=== PATIENT | female | born 1960 | race Caucasian/White ===

== ENCOUNTER 2020-12-09 13:49 | Emergency (ER) | payer MEDICAID ==
[~2020-12-09] VITALS: Ht 157.5 cm; Wt 89.0 kg
[2020-12-09 15:10] LABS: CLARITY URINE CLEAR (CLEAR); COLOR URINE YELLOW (YELLOW); KETONES URINE NEGATIVE (NEGATIVE); LEUKOCYTE ESTERASE URINE NEGATIVE (NEGATIVE); NITRITE URINE NEGATIVE (NEGATIVE); OCCULT BLOOD URINE NEGATIVE (NEGATIVE); PH URINE 6.5 (4.5-8.0); PROTEIN URINE NEGATIVE (NEGATIVE); SPECIFIC GRAVITY URINE 1.024 (1.005-1.030); UROBILINOGEN URINE 0.2 E.U./dL (0.2-1.0)
[2020-12-09] MEDS ORDERED: MUPI15CR11 TP (15:42)
[2020-12-09] MEDS ORDERED: INSU200I4 SQ (15:42)
[2020-12-09] MEDS ORDERED: INSU100V34 SQ (15:42)
[2020-12-09 16:07] VITALS: BP 151/51
== END 2020-12-09 16:11 | disposition home or self-care (01) ==
LOC: ER 13:49
DX: S91.311A Laceration without foreign body, right foot, initial encounter (principal); M77.31 Calcaneal spur, right foot; E11.9 Type 2 diabetes mellitus without complications; I10 Essential (primary) hypertension; Z76.0 Encounter for issue of repeat prescription; Z98.1 Arthrodesis status; Z88.0 Allergy status to penicillin; Z79.4 Long term (current) use of insulin; X58.XXXA Exposure to other specified factors, initial encounter; Y93.89 Activity, other specified; Y92.018 Other place in single-family (private) house as the place of occurrence of the external cause
CPT/HCPCS: 73650; 81003; 99284

== ENCOUNTER 2020-12-29 13:14 | Emergency (ER) | payer MEDICAID, OTHER ==
[~2020-12-29] VITALS: Ht 160 cm; Wt 86.0 kg
[~2020-12-29 13:14] MED LIST: ATEN50TA PO; CLON0.5T PO; INSU100V34 SQ; INSU200I4 SQ; LEVO500T89 PO; LORA5SOL62 PO; LOVA10TA54 PO; MUPI15CR11 TP; TRAZ150T78 MT
[2020-12-29 14:21] VITALS: BP 125/53
[2020-12-29] MEDS ORDERED: ALBU6.7H9 INH (14:26)
[2020-12-29] MEDS ORDERED: INSU100V34 SQ (14:26)
[2020-12-29] MEDS ORDERED: INSU200I4 SQ (14:26)
[2020-12-29] MEDS ORDERED: GABA-532 MT (14:26)
== END 2020-12-29 14:58 | disposition home or self-care (01) ==
LOC: ER 13:14
DX: R52 Pain, unspecified (principal); J45.909 Unspecified asthma, uncomplicated; E11.9 Type 2 diabetes mellitus without complications; I10 Essential (primary) hypertension; Z79.899 Other long term (current) drug therapy; Z88.0 Allergy status to penicillin
CPT/HCPCS: 82962; 99281; 99282

== ENCOUNTER 2021-01-04 15:15 | Emergency (ER) | payer MEDICAID ==
[~2021-01-04] VITALS: Ht 152.4 cm; Wt 80.0 kg
[~2021-01-04 15:15] MED LIST changes: +ALBU6.7H9 INH; +GABA-532 MT
[2021-01-04 18:36] LABS: HEMATOCRIT. 29.1 % (36.0-48.0); HEMOGLOBIN. 9.3 g/dL (12.0-16.0); MEAN CORPUSCULAR HEMOGLOBIN 23.1 pg (28.0-32.0); MEAN CORPUSCULAR VOLUME 72.1 fL (81.0-99.0); PLATELET 292 x1000/uL (130-400); RED BLOOD CELL COUNT 4.04 mill/uL (4.2-5.4); RED CELL DISTRIBUTION WIDTH 18.4 % (11.6-14.6)
[2021-01-04 18:43] LABS: CHLORIDE 109 mEq/L (98-107)
[2021-01-04 19:06] LABS: PLATELET ESTIMATE NORMAL
[2021-01-04 19:23] LABS: CLARITY URINE CLEAR (CLEAR); COLOR URINE YELLOW (YELLOW); KETONES URINE NEGATIVE (NEGATIVE); LEUKOCYTE ESTERASE URINE TRACE (NEGATIVE); NITRITE URINE NEGATIVE (NEGATIVE); OCCULT BLOOD URINE NEGATIVE (NEGATIVE); PH URINE 5.5 (4.5-8.0); PROTEIN URINE 2+ (NEGATIVE); SPECIFIC GRAVITY URINE 1.026 (1.005-1.030); UROBILINOGEN URINE 0.2 E.U./dL (0.2-1.0)
[2021-01-04] MEDS ORDERED: NITR-87 MT (20:16)
[2021-01-04 20:25] VITALS: BP 121/61
== END 2021-01-04 20:25 | disposition home or self-care (01) ==
LOC: ER 15:32
DX: E11.65 Type 2 diabetes mellitus with hyperglycemia (principal); F32.9 Major depressive disorder, single episode, unspecified; J45.909 Unspecified asthma, uncomplicated; Z79.4 Long term (current) use of insulin; Z88.0 Allergy status to penicillin
CPT/HCPCS: 36415; 71045; 80053; 81003; 82962; 83880; 84484; 85025; 93005; 99285

== ENCOUNTER 2021-03-12 00:33 | Emergency (ER) | payer MEDICAID ==
[~2021-03-12] VITALS: Ht 160 cm; Wt 100.0 kg
[~2021-03-12 00:33] MED LIST changes: +NITR-87 MT
[2021-03-12] MEDS ORDERED: METHOCARBAMOL 500MG TABLET PO ONE (01:30)
[2021-03-12] MEDS ORDERED: ACETAMINOPHEN 325MG TABLET PO ONE (01:30)
[2021-03-12 01:55] LABS: BASOPHILS % 2.3 % (0.0-2.0); EOSINOPHILS % 6.7 % (0.0-5.0); HEMATOCRIT. 31.5 % (36.0-48.0); HEMOGLOBIN. 9.7 g/dL (12.0-16.0); LYMPHOCYTES % 29.4 % (20.0-50.0); MEAN CORPUSCULAR HEMOGLOBIN 20.8 pg (28.0-32.0); MEAN CORPUSCULAR VOLUME 67.5 fL (81.0-99.0); MEAN PLATELET VOLUME 8.3 fl (7.4-10.4); NEUTROPHILS % 52.6 % (40.0-76.0); PLATELET 264 x1000/uL (130-400); RED BLOOD CELL COUNT 4.66 mill/uL (4.2-5.4); RED CELL DISTRIBUTION WIDTH 26.7 % (11.6-14.6)
[2021-03-12 02:01] LABS: CHLORIDE 106 mEq/L (98-107)
[2021-03-12 04:47] LABS: PLATELET ESTIMATE NORMAL
[2021-03-12] MEDS ORDERED: ACET-2708 MT (05:29)
[2021-03-12] MEDS ORDERED: METH500T6 MT (05:29)
[2021-03-12 05:32] VITALS: BP 158/89
== END 2021-03-12 06:35 | disposition home or self-care (01) ==
LOC: ER 00:33
DX: M25.512 Pain in left shoulder (principal); J45.909 Unspecified asthma, uncomplicated; J44.1 Chronic obstructive pulmonary disease with (acute) exacerbation; E11.9 Type 2 diabetes mellitus without complications; Z88.0 Allergy status to penicillin; Z79.4 Long term (current) use of insulin; Z79.899 Other long term (current) drug therapy
CPT/HCPCS: 36415; 71045; 73030; 80053; 83880; 84484; 85025; 93005; 99285

== ENCOUNTER 2021-05-28 21:06 | Inpatient (IN) | payer MEDICAID ==
[~2021-05-28] VITALS: Ht 160 cm; Wt 88.5 kg
[~2021-05-28 21:06] MED LIST changes: +ACET-2708 MT; +METH-773 MT
[2021-05-29] MEDS ORDERED: SODIUM CHLORIDE 0.9% 1,000 ML IV ONE (05:15)
[2021-05-29 05:22] LABS: CLARITY URINE CLEAR (CLEAR); COLOR URINE YELLOW (YELLOW); KETONES URINE NEGATIVE (NEGATIVE); LEUKOCYTE ESTERASE URINE TRACE (NEGATIVE); NITRITE URINE NEGATIVE (NEGATIVE); OCCULT BLOOD URINE TRACE (NEGATIVE); PH URINE 6.5 (4.5-8.0); PROTEIN URINE TRACE (NEGATIVE); SPECIFIC GRAVITY URINE 1.024 (1.005-1.030); UROBILINOGEN URINE 0.2 E.U./dL (0.2-1.0)
[2021-05-29 05:30] LABS: BASOPHILS % 0.4 % (0.0-2.0); EOSINOPHILS % 0.1 % (0.0-5.0); HEMOGLOBIN. 12.2 g/dL (12.0-16.0); LYMPHOCYTES % 11.8 % (20.0-50.0); MEAN CORPUSCULAR HEMOGLOBIN 21.5 pg (28.0-32.0); MEAN CORPUSCULAR VOLUME 72.2 fL (81.0-99.0); MEAN PLATELET VOLUME 8.5 fl (7.4-10.4); MONOCYTES % 5.8 % (2.0-8.0); NEUTROPHILS % 81.9 % (40.0-76.0); PLATELET 378 x1000/uL (130-400); RED BLOOD CELL COUNT 5.68 mill/uL (4.2-5.4); RED CELL DISTRIBUTION WIDTH 20.9 % (11.6-14.6)
[2021-05-29 05:36] LABS: CHLORIDE 94 mEq/L (98-107)
[2021-05-29 05:36] LABS: BG BASE EXCESS -6.1 mmol/L (-2.0-2.0); BG CARBOXYHEMOGLOBIN 1.9 % (0.5-1.5); BG DEOXYHEMOGLOBIN 9.8 % (0.0-5.0); BG FRACTION INSPIRED OXYGEN 21; BG HCO3 ACT 19.8 mmol/L (22.0-26.0); BG METHEMOGLOBIN 0.2 % (0.0-1.5); BG OXYHEMOGLOBIN 88.1 % (94.0-97.0); BG PCO2 40.4 mmHg (35.0-45.0); BG PH 7.308 (7.350-7.450); BG PO2 63.3 mmHg (75.0-100.0); BG SAMPLE SITE RIGHT RADIAL; BG TOTAL HEMOGLOBIN 12.5 g/dL (12.0-18.0); BG VENT MODE ROOM AIR
[2021-05-29 05:45] LABS: BETA HYDROXYBUTYRATE 0.2 mMol/L (0.0-0.3)
[2021-05-29] MEDS ORDERED: INSULIN REGULAR (DRIP) 100 UNITS in SODIUM CHLORIDE 0.9% 99 ML IV SCH (06:15)
[2021-05-29] MEDS ORDERED: ACETAMINOPHEN 325MG TABLET PO ONE (09:30)
[2021-05-29] MEDS ORDERED: MAGNESIUM/ALUMINUM HYDROXIDE/SIMETHICONE 30ML UDC PO PRN (15:45)
[2021-05-29] MEDS ORDERED: GUAIFENESIN 200MG/10ML SUGAR FREE UDC PO PRN (15:45)
[2021-05-29] MEDS ORDERED: SODIUM CHLORIDE 0.9% 1,000 ML IV SCH (15:45)
[2021-05-29] MEDS ORDERED: DOCUSATE SODIUM 100MG CAPSULE PO PRN (15:45)
[2021-05-29] MEDS ORDERED: DEXTROSE 50% WATER 50ML SYRINGE IV PRN ×2 (15:45)
[2021-05-29] MEDS ORDERED: ACETAMINOPHEN 325MG TABLET PO PRN (15:45)
[2021-05-29] MEDS ORDERED: CLONIDINE 0.1MG TABLET PO PRN (15:45)
[2021-05-29] MEDS: SODIUM CHLORIDE 0.45% 1,000 ML IV SCH (16:00)
[2021-05-29 16:35] LABS: HEMATOCRIT 40.2 % (36.0-48.0); HEMOGLOBIN 12.5 g/dL (12.0-16.0); MEAN CORPUSCULAR HEMOGLOBIN 21.8 pg (28.0-32.0); MEAN CORPUSCULAR VOLUME 69.9 fL (81.0-99.0); PLATELET 400 x1000/uL (130-400); RED BLOOD CELL COUNT 5.75 mill/uL (4.2-5.4); RED CELL DISTRIBUTION WIDTH 20.3 % (11.6-14.6)
[2021-05-29 16:44] LABS: CHLORIDE 104 mEq/L (98-107)
[2021-05-29] MEDS: ENOXAPARIN 40MG/0.4ML SYR SUBCUT SCH (17:00)
[2021-05-29] MEDS: INSULIN LISPRO 100 UNITS/ML SUBCUT SCH ×2 (17:08→21:28)
[2021-05-29] MEDS: BLOOD SUGAR DIAGNOSTIC STRIP TEST SCH ×2 (17:48→21:04)
[2021-05-29] MEDS ORDERED: INSULIN GLARGINE UD 100 UNITS/ML SYR SUBCUT SCH (22:00)
[2021-05-30 01:30] VITALS: BP 151/75
[2021-05-30] MEDS: SODIUM CHLORIDE 0.45% 1,000 ML IV SCH ×3 (01:49→17:25)
[2021-05-30] MEDS: BLOOD SUGAR DIAGNOSTIC STRIP TEST SCH ×4 (05:53→21:20)
[2021-05-30] MEDS: OMEPRAZOLE 20MG CAPSULE EXTENDED RELEASE PO SCH (05:54)
[2021-05-30] MEDS: INSULIN LISPRO 100 UNITS/ML SUBCUT SCH ×4 (06:13→21:47)
[2021-05-30 08:00] VITALS: BP 148/88
[2021-05-30 09:24] LABS: BASOPHILS % 0.7 % (0.0-2.0); EOSINOPHILS % 1.9 % (0.0-5.0); HEMATOCRIT. 38.6 % (36.0-48.0); LYMPHOCYTES % 28.1 % (20.0-50.0); MEAN CORPUSCULAR HEMOGLOBIN 21.4 pg (28.0-32.0); MEAN CORPUSCULAR VOLUME 68.6 fL (81.0-99.0); MEAN PLATELET VOLUME 8.4 fl (7.4-10.4); MONOCYTES % 7.6 % (2.0-8.0); NEUTROPHILS % 61.7 % (40.0-76.0); PLATELET 385 x1000/uL (130-400); RED BLOOD CELL COUNT 5.63 mill/uL (4.2-5.4); RED CELL DISTRIBUTION WIDTH 20.7 % (11.6-14.6)
[2021-05-30 09:29] LABS: CHLORIDE 102 mEq/L (98-107)
[2021-05-30 09:39] LABS: LDL CHOLESTEROL 91 mg/dL (5-100); PHOSPHORUS 2.6 mg/dL (2.5-4.9)
[2021-05-30 09:41] LABS: T4 FREE 0.93 ng/dL (0.76-1.46)
[2021-05-30 09:42] LABS: HDL CHOLESTEROL 37 mg/dL (40-59)
[2021-05-30] MEDS: INSULIN GLARGINE UD 100 UNITS/ML SYR SUBCUT SCH ×2 (11:39→21:48)
[2021-05-30 12:00] VITALS: BP 146/74
[2021-05-30] MEDS: IPRATROPIUM/ALBUTEROL 0.5-3(2.5)MG/3ML NEB HHN SCH ×2 (13:08→16:52)
[2021-05-30 13:47] LABS: PLATELET ESTIMATE NORMAL
[2021-05-30 16:00] VITALS: BP 156/81
[2021-05-30] MEDS ORDERED: MONTELUKAST SODIUM 10MG TABLET PO SCH (17:00)
[2021-05-30] MEDS: ENOXAPARIN 40MG/0.4ML SYR SUBCUT SCH (17:25)
[2021-05-30 20:00] VITALS: BP 114/69
[2021-05-30] MEDS ORDERED: INSULIN LISPRO 100 UNITS/ML SUBCUT NR (21:00)
[2021-05-30] MEDS ORDERED: ATORVASTATIN CALCIUM 20MG TABLET PO SCH (21:00)
[2021-05-30] MEDS ORDERED: ZOLPIDEM TARTRATE 5MG TABLET PO PRN (23:45)
[2021-05-31] VITALS: BP 158/82
[2021-05-31] MEDS: SODIUM CHLORIDE 0.45% 1,000 ML IV SCH (00:04)
[2021-05-31] MEDS: BLOOD SUGAR DIAGNOSTIC STRIP TEST SCH (05:49)
[2021-05-31] MEDS: OMEPRAZOLE 20MG CAPSULE EXTENDED RELEASE PO SCH (05:49)
[2021-05-31 06:24] LABS: BASOPHILS % 0.8 % (0.0-2.0); EOSINOPHILS % 2.3 % (0.0-5.0); HEMATOCRIT. 39.1 % (36.0-48.0); HEMOGLOBIN. 12.4 g/dL (12.0-16.0); LYMPHOCYTES % 33.5 % (20.0-50.0); MEAN CORPUSCULAR HEMOGLOBIN 21.7 pg (28.0-32.0); MEAN PLATELET VOLUME 8.7 fl (7.4-10.4); NEUTROPHILS % 54.4 % (40.0-76.0); PLATELET 356 x1000/uL (130-400); RED BLOOD CELL COUNT 5.74 mill/uL (4.2-5.4); RED CELL DISTRIBUTION WIDTH 20.3 % (11.6-14.6)
[2021-05-31] MEDS: INSULIN LISPRO 100 UNITS/ML SUBCUT SCH (06:33)
[2021-05-31] MEDS ORDERED: LANTUSUD SUBCUT (07:31)
[2021-05-31 07:47] LABS: CHLORIDE 104 mEq/L (98-107)
[2021-05-31 07:57] LABS: PHOSPHORUS 3.4 mg/dL (2.5-4.9)
[2021-05-31 08:09] VITALS: BP 152/86
== END 2021-05-31 08:30 | disposition home or self-care (01) | DRG 420 ==
LOC: ER 21:06 → MICUSO 05-29 07:34 → 7EST 05-30 00:32
PROVIDERS: ADMIT Internal Medicine; ATTEND Internal Medicine
DX: E11.01 Type 2 diabetes mellitus with hyperosmolarity with coma (principal); E46 Unspecified protein-calorie malnutrition; D72.829 Elevated white blood cell count, unspecified; E78.5 Hyperlipidemia, unspecified; F31.9 Bipolar disorder, unspecified; E11.65 Type 2 diabetes mellitus with hyperglycemia; G43.909 Migraine, unspecified, not intractable, without status migrainosus; G89.29 Other chronic pain; M54.9 Dorsalgia, unspecified; I10 Essential (primary) hypertension; J44.9 Chronic obstructive pulmonary disease, unspecified; Z20.822 Contact with and (suspected) exposure to COVID-19; Z79.4 Long term (current) use of insulin; Z82.49 Family history of ischemic heart disease and other diseases of the circulatory system; Z68.34 Body mass index [BMI] 34.0-34.9, adult; Z88.0 Allergy status to penicillin; Z79.899 Other long term (current) drug therapy; Z79.2 Long term (current) use of antibiotics
CPT/HCPCS: 36415; 36600; 71045; 80048; 80053; 80061; 81003; 82010; 82375; 82805; 82962; 83036; 83735; 83930; 83935; 84100; 84439; 84443; 84484; 85025; 85027; 87426; 93005; 99291; J1650; J1815; J7030; J7040; J7050

== ENCOUNTER 2023-11-22 11:22 | Emergency (ER) | payer MEDICAID ==
[~2023-11-22] VITALS: Ht 160 cm; Wt 81.6 kg
[~2023-11-22 11:22] MED LIST changes: +ALBU6.7H3 INH; -ALBU6.7H9 INH; -CLON0.5T PO; +CLON0.5T2 PO; +GLIP10TA10 MT; +LANTUSUD SUBCUT; -LEVO500T89 PO; -NITR-87 MT
[2023-11-22 11:31] VITALS: TEMP 98.3; O2SAT 94
[2023-11-22] MEDS: ACETAMINOPHEN 325MG TABLET PO ONE (11:45)
[2023-11-22] MEDS: LIDOCAINE 5% PATCH TOP SCH (11:45)
[2023-11-22] MEDS: KETOROLAC 15MG/ML VIAL IM ONE (11:45)
[2023-11-22] MEDS ORDERED: NAPR-1176 MT (13:42)
[2023-11-22] MEDS ORDERED: LIDO700A15 TP (13:42)
[2023-11-22 13:57] VITALS: BP 104/70; PULSE 78; RESP 20
== END 2023-11-22 13:58 | disposition home or self-care (01) ==
LOC: ER 11:22
DX: M54.12 Radiculopathy, cervical region (principal); I10 Essential (primary) hypertension; E78.00 Pure hypercholesterolemia, unspecified; E11.9 Type 2 diabetes mellitus without complications; Z88.0 Allergy status to penicillin; Z79.899 Other long term (current) drug therapy
CPT/HCPCS: 99283; 96372; J1885

== ENCOUNTER 2024-08-30 03:17 | Emergency (ER) | payer MEDICAID ==
[~2024-08-30] VITALS: Ht 160 cm; Wt 91.0 kg
[~2024-08-30 03:17] MED LIST changes: +ALBU18HF2 IH; +GABA-1180 MT; -GABA-532 MT; -GLIP10TA10 MT; +GLIP10TA17 MT; +GUAI200T5 PO; +LIDO700A15 TP; +NAPR-1176 MT; +P20 MT
[2024-08-30 03:27] VITALS: O2SAT 100
[2024-08-30 04:24] LABS: CLARITY URINE CLEAR (CLEAR); COLOR URINE YELLOW (YELLOW); GLUCOSE URINE 3+ (NEGATIVE); KETONES URINE NEGATIVE (NEGATIVE); LEUKOCYTE ESTERASE URINE NEGATIVE (NEGATIVE); NITRITE URINE NEGATIVE (NEGATIVE); OCCULT BLOOD URINE TRACE (NEGATIVE); PROTEIN URINE 2+ (NEGATIVE); SPECIFIC GRAVITY URINE 1.025 (1.005-1.030); UROBILINOGEN URINE 0.2 E.U./dL (0.2-1.0)
[2024-08-30 04:26] LABS: BASOPHILS % 0.6 % (0.0-2.0); EOSINOPHILS % 0.1 % (0.0-5.0); HEMOGLOBIN. 11.8 g/dL (12.0-16.0); LYMPHOCYTES % 13.4 % (20.0-50.0); MEAN CORPUSCULAR HEMOGLOBIN 21.4 pg (28.0-32.0); MEAN CORPUSCULAR HGB CONC 31.1 g/dL (31.0-37.0); MEAN CORPUSCULAR VOLUME 68.8 fL (81.0-99.0); MEAN PLATELET VOLUME 7.4 fl (7.4-10.4); MONOCYTES % 1.5 % (2.0-8.0); NEUTROPHILS % 84.4 % (40.0-76.0); PLATELET 362 x1000/uL (130-400); RED BLOOD CELL COUNT 5.53 mill/uL (4.2-5.4); RED CELL DISTRIBUTION WIDTH 18.8 % (11.6-14.6); WHITE BLOOD COUNT 7.6 x1000/uL (4.5-11.0)
[2024-08-30 04:27] LABS: POTASSIUM 4.8 mEq/L (3.5-5.1)
[2024-08-30 04:28] LABS: CALCIUM 9.5 mg/dL (8.7-10.4)
[2024-08-30 04:33] LABS: CREATININE 1.1 mg/dL (0.6-1.0)
[2024-08-30 04:36] LABS: SQUAMOUS EPITHELIAL CELL URINE FEW /lpf (RARE/1+)
[2024-08-30 04:37] LABS: RBC URINE 0-2 /hpf (0-2); WBC URINE 0-2 /hpf (0-2)
[2024-08-30 04:38] LABS: BACTERIA URINE NONE SEEN
[2024-08-30] MEDS: SODIUM CHLORIDE 0.9% 1,000 ML IV ONE ×2 (04:48)
[2024-08-30 04:53] LABS: DIFFERENTIAL COMMENT 1
[2024-08-30 04:57] LABS: ADD RBC MORPHOLOGY YES
[2024-08-30] MEDS: INSULIN REGULAR (HUMULIN R) 1000UNITS/10ML VIAL IV ONE (05:47)
[2024-08-30 06:17] VITALS: TEMP 36.7
[2024-08-30 07:24] LABS: BETA HYDROXYBUTYRATE 0.1 mMol/L (0.0-0.3)
[2024-08-30 09:29] VITALS: BP 139/69; PULSE 72; RESP 22; O2SAT 96
[2024-08-30 12:54] LABS: ANISOCYTOSIS 1+; MICROCYTOSIS 2+; PLATELET ESTIMATE NORMAL
== END 2024-08-30 09:30 | disposition home or self-care (01) ==
LOC: ER 03:17
DX: E11.65 Type 2 diabetes mellitus with hyperglycemia (principal); I10 Essential (primary) hypertension; J45.909 Unspecified asthma, uncomplicated; Z88.0 Allergy status to penicillin; Z79.899 Other long term (current) drug therapy; Z79.4 Long term (current) use of insulin
CPT/HCPCS: 80048; 81003; 82010; 82962; 85025; 36415; 71045; 93005; 96361; 96374; 99285; J1815; J7030; Z7610; 99291

== ENCOUNTER 2024-09-12 13:03 | Emergency (ER) | payer MEDICAID ==
[~2024-09-12] VITALS: Ht 160 cm; Wt 83.0 kg
[2024-09-12 13:17] VITALS: O2SAT 93
[2024-09-12] MEDS: PREDNISONE 20MG TABLET PO ONE (13:54)
[2024-09-12 14:01] VITALS: PULSE 83; RESP 20
[2024-09-12] MEDS: IPRATROPIUM/ALBUTEROL 0.5-3(2.5)MG/3ML NEB HHN ONE (14:01)
[2024-09-12 15:11] LABS: HEMATOCRIT. 36.8 % (36.0-48.0); HEMOGLOBIN. 11.3 g/dL (12.0-16.0); MEAN CORPUSCULAR HEMOGLOBIN 21.5 pg (28.0-32.0); MEAN CORPUSCULAR HGB CONC 30.8 g/dL (31.0-37.0); MEAN CORPUSCULAR VOLUME 69.8 fL (81.0-99.0); MEAN PLATELET VOLUME 7.5 fl (7.4-10.4); PLATELET 269 x1000/uL (130-400); RED BLOOD CELL COUNT 5.27 mill/uL (4.2-5.4); RED CELL DISTRIBUTION WIDTH 20.3 % (11.6-14.6)
[2024-09-12 15:18] LABS: CHLORIDE 101 mEq/L (98-107); POTASSIUM 4.6 mEq/L (3.5-5.1); SODIUM 139 mEq/L (136-145)
[2024-09-12 15:19] LABS: CALCIUM 9.8 mg/dL (8.7-10.4); CARBON DIOXIDE 31 mEq/L (21-32)
[2024-09-12 15:22] LABS: DIFFERENTIAL COMMENT 1
[2024-09-12 15:24] LABS: GLUCOSE 143 mg/dL (70-105); UREA NITROGEN BLOOD 18 mg/dL (9-23)
[2024-09-12 15:25] LABS: TROPONIN I HIGH SENSITIVITY 6 ng/L (3.0-34)
[2024-09-12] MEDS ORDERED: P50 MT (15:55)
[2024-09-12] MEDS ORDERED: ALBU18HF2 IH (15:56)
[2024-09-12 16:05] VITALS: BP 131/60; PULSE 83; RESP 18; TEMP 36.7; O2SAT 93
[2024-09-12 16:20] LABS: ANISOCYTOSIS 1+; HYPOCHROMASIA 2+; MICROCYTOSIS 3+; PLATELET ESTIMATE NORMAL
== END 2024-09-12 16:06 | disposition home or self-care (01) ==
LOC: ER 13:03
DX: J44.1 Chronic obstructive pulmonary disease with (acute) exacerbation (principal); F17.200 Nicotine dependence, unspecified, uncomplicated; I10 Essential (primary) hypertension; E78.00 Pure hypercholesterolemia, unspecified; E11.9 Type 2 diabetes mellitus without complications; Z88.0 Allergy status to penicillin; Z79.899 Other long term (current) drug therapy; Z79.4 Long term (current) use of insulin
CPT/HCPCS: 80048; 85025; 85379; 84484; 36415; 71045; 94640; 93005; 99285; J7512; Z7610 ×3; 94070

== ENCOUNTER 2025-01-26 21:23 | Emergency (ER) | payer MEDICAID ==
[~2025-01-26] VITALS: Ht 160 cm; Wt 84.0 kg
[~2025-01-26 21:23] MED LIST changes: +LIDO-53 TP; -LIDO700A15 TP; +P50 MT
[2025-01-26 21:59] VITALS: O2SAT 100
[2025-01-26] MEDS ORDERED: CYCL5TAB3 MT (23:58)
[2025-01-27] MEDS: LIDOCAINE 5% PATCH TOP SCH (00:28)
[2025-01-27] MEDS: KETOROLAC 15MG/ML VIAL IM ONE (00:28)
[2025-01-27 00:35] VITALS: BP 118/70; PULSE 80; RESP 18; TEMP 36.6; O2SAT 95
== END 2025-01-27 00:35 | disposition home or self-care (01) ==
LOC: ER 21:23
DX: M79.18 Myalgia, other site (principal); E11.9 Type 2 diabetes mellitus without complications; E78.00 Pure hypercholesterolemia, unspecified; I10 Essential (primary) hypertension; J45.909 Unspecified asthma, uncomplicated; Z88.0 Allergy status to penicillin
CPT/HCPCS: 99283; 96372; J1885

== ENCOUNTER 2025-02-28 12:37 | Emergency (ER) | payer MEDICAID ==
[~2025-02-28] VITALS: Ht 165.1 cm; Wt 78.0 kg
[~2025-02-28 12:37] MED LIST changes: +CYCL5TAB3 MT
[2025-02-28 12:43] VITALS: TEMP 36.7; O2SAT 100
[2025-02-28] MEDS ORDERED: NAPR-1176 MT (13:52)
[2025-02-28 14:10] VITALS: BP 131/78; PULSE 80; RESP 16; O2SAT 95
[2025-02-28] MEDS: KETOROLAC 30MG/ML VIAL IM ONE (14:10)
== END 2025-02-28 14:09 | disposition home or self-care (01) ==
LOC: ER 12:37
DX: M17.0 Bilateral primary osteoarthritis of knee (principal); E11.9 Type 2 diabetes mellitus without complications; E78.00 Pure hypercholesterolemia, unspecified; I10 Essential (primary) hypertension; J45.909 Unspecified asthma, uncomplicated; Z88.0 Allergy status to penicillin
CPT/HCPCS: 99283; 96372; J1885

== ENCOUNTER 2025-03-16 12:33 | Emergency (ER) | payer MEDICAID ==
[2025-03-16] MEDS ORDERED: CAPS42.514 TP (13:50)
[2025-03-16] MEDS ORDERED: ACET-2708 MT (13:50)
[2025-03-16] MEDS: LIDOCAINE 5% PATCH TOP SCH (14:21)
[2025-03-16] MEDS: KETOROLAC 30MG/ML VIAL IM ONE (14:21)
[2025-03-16 14:43] VITALS: BP 132/78; PULSE 84; RESP 16; O2SAT 97
== END 2025-03-16 14:42 | disposition home or self-care (01) ==
LOC: ER 12:52
DX: M25.561 Pain in right knee (principal); E78.00 Pure hypercholesterolemia, unspecified; E11.9 Type 2 diabetes mellitus without complications; I10 Essential (primary) hypertension; J45.909 Unspecified asthma, uncomplicated; Z79.1 Long term (current) use of non-steroidal anti-inflammatories (NSAID); Z79.4 Long term (current) use of insulin; Z79.84 Long term (current) use of oral hypoglycemic drugs; Z87.01 Personal history of pneumonia (recurrent); Z88.0 Allergy status to penicillin
CPT/HCPCS: 99284; 73030; 73560; 96372; J1885

== ENCOUNTER 2025-03-20 10:54 | Emergency (ER) | payer MEDICAID ==
[~2025-03-20] VITALS: Ht 165.1 cm; Wt 91.0 kg
[~2025-03-20 10:54] MED LIST changes: +CAPS42.514 TP
[2025-03-20 11:02] VITALS: O2SAT 94
[2025-03-20] MEDS ORDERED: KETOROLAC 15MG/ML VIAL IM ONE ×2 (11:30→12:45)
[2025-03-20] MEDS ORDERED: KETO10TA2 MT (12:21)
[2025-03-20] MEDS ORDERED: KETOROLAC 15MG/ML VIAL IM NR (12:45)
[2025-03-20 13:00] VITALS: BP 151/72; PULSE 76; RESP 18; TEMP 36.7; O2SAT 99
[2025-03-20] MEDS ORDERED: KETOROLAC 30MG/ML VIAL IM ONE (13:00)
[2025-03-20] MEDS: KETOROLAC 30MG/ML VIAL IM NR (13:00)
[2025-03-27] MEDS ORDERED: AZIT250T MT (12:49)
[2025-03-27] MEDS ORDERED: TUSSL MT (12:49)
== END 2025-03-20 13:02 | disposition home or self-care (01) ==
LOC: ER 10:54
DX: M25.511 Pain in right shoulder (principal); M25.561 Pain in right knee; E11.9 Type 2 diabetes mellitus without complications; E78.00 Pure hypercholesterolemia, unspecified; I10 Essential (primary) hypertension; J45.909 Unspecified asthma, uncomplicated; Z88.0 Allergy status to penicillin
CPT/HCPCS: 99284; 73030; 73562; 96372; J1885